=== PATIENT | female | born 1960 | race Caucasian/White ===

== ENCOUNTER 2023-06-30 09:33 | Outpatient (CLI) | payer BC | END 2023-06-30 09:34 | disposition home or self-care (01) | LOC: SCSRAD 09:33 | PROVIDERS: ATTEND Nurse Practitioner Family | DX: R07.9 Chest pain, unspecified (principal) | CPT/HCPCS: 71046 ==

== ENCOUNTER 2023-07-06 11:15 | Outpatient (CLI) | payer BC | END 2023-07-06 11:16 | disposition home or self-care (01) | LOC: SCSRAD 11:15 | PROVIDERS: ATTEND Family Medicine | DX: R07.89 Other chest pain (principal) | CPT/HCPCS: 81001 ==

== ENCOUNTER 2023-08-11 06:38 | Inpatient (IN) | payer BC ==
[2023-08-11 07:24] LABS: #Monocytes 0.9 thou/uL (0.11-0.59); #Neutrophils 8.4 thou/uL (1.40-6.50); %Basophils 0.2 % (0.0-1.0); %Eosinophils 0.1 % (0.0-10.0); %Lymphocytes 7.6 % (21.0-51.0); %Monocytes 8.4 % (0.0-10.0); %Neutrophils 82.7 % (42.0-75.0); Hematocrit 23.7 % (36.0-47.0); Hemoglobin 7.2 g/dL (12.0-16.0); Mean Corpuscular HGB CONC 30.4 g/dL (32.0-36.0); Mean Corpuscular Hemoglobin 19.6 pg (27.0-31.0); Mean Corpuscular Volume 64.4 fl (78.0-98.0); Mean Platelet Volume 8.2 fL (7.4-10.4); Platelet Count 268 10x3/uL (130-400); RBC Distribution Width 18.1 % (11.5-14.5); Red Blood Cell (RBC) Count 3.68 mill/uL (4.20-5.40); White Blood Cell (WBC) Count 10.1 10x3/uL (4.8-10.8)
[2023-08-11 07:49] LABS: CellaVision Operator ID LAB.GE; Hypochromia MODERATE=16-30 cells HPF (0-5); Microcytosis MODERATE=15-30 cells HPF (0-5); Platelet Adequacy Comment Platelets Normal; Polychromasia SLIGHT = 2-3 cells HPF (0-2)
[2023-08-11 07:54] LABS: ALT (SGPT) 21 U/L (8-55); AST (SGOT) 25 U/L (5-34); Albumin 3.6 g/dL (3.4-4.8); Alkaline Phosphatase 83 U/L (40-110); Anion Gap 14 mmol/L (10-20); BUN (Urea Nitrogen) 6 mg/dL (9.8-20.1); Bilirubin, Total 0.9 mg/dL (0.2-1.2); Calc. Creatinine Clearance 0 mL/min (70-130); Calcium 8.6 mg/dL (7.8-10.44); Carbon Dioxide 26 mmol/L (23-31); Chloride 74 mmol/L (98-107); Estimated GFR 99; Globulin 2.4 g/dL (2.4-3.5); Glucose 102 mg/dL (80-115)
[2023-08-11 08:02] LABS: Potassium 2.6 mmol/L (3.5-5.1); Sodium 111 mmol/L (136-145)
[2023-08-11] MEDS ORDERED: Ketorolac Tromethamine 30 MG/ML VIAL ONE (08:04)
[2023-08-11] MEDS ORDERED: Sodium Chloride 0.9% 0 ML ONE (08:05)
[2023-08-11] MEDS ORDERED: cefTRIAXone (ROCEPHIN) 1 GM VIAL ONE (08:05)
[2023-08-11 08:47] LABS: Magnesium 1.7 mg/dL (1.6-2.6)
[2023-08-11 09:05] LABS: Bilirubin Negative (Negative); Blood, Urine Negative (Negative); Glucose, Urine (Dipstick) Negative (Negative); Ketone, Urine 15 mg/dL (Negative); Leukocyte Negative (Negative); Nitrite Negative (Negative); Protein, Urine (Dipstick) Negative (Neg-Trace); Urobilinogen 0.2 mg/dL (Less than 2)
[2023-08-11] MEDS ORDERED: Potassium Chloride 20 MEQ TAB ONE (09:09)
[2023-08-11 09:13] LABS: Bacteria/HPF None Seen HPF (None Seen); CAUTI Indications for Culture Dysuria,urgency,freq; RBC/HPF 0-3 HPF (0-3); Squamous Epithelial 0-3 HPF (0-3); WBC/HPF 0-3 HPF (0-3)
[2023-08-11 09:14] LABS: Clarity Clear (Clear); Specific Gravity, Urine 1.028 (1.002-1.036)
[2023-08-11 09:17] LABS: Urine Culture Reflex No No
[2023-08-11] MEDS ORDERED: Acetaminophen 325 MG TAB PO PRN (09:36)
[2023-08-11] MEDS ORDERED: Bisacodyl 10 MG SUPP PR PRN (09:36)
[2023-08-11] MEDS ORDERED: Senokot S 8.6-50 MG TAB PO PRN (09:36)
[2023-08-11] MEDS ORDERED: Bisacodyl 5 MG TAB PO PRN (09:36)
[2023-08-11 10:47] LABS: Iron 23 ug/dL (50-170); Iron Binding Capacity, Total 424 mcg/dL (265-497)
[2023-08-11 10:49] LABS: Sodium 110 mmol/L (136-145)
[2023-08-11] MEDS ORDERED: Iopamidol 370 76% 100 ML VIAL ONE (10:59)
[2023-08-11 11:20] VITALS: BMI 33.7
[2023-08-11] MEDS ORDERED: Potassium Chloride 10 MEQ in Premix 1 BAG IVPB SCH (12:00)
[2023-08-11] MEDS ORDERED: Potassium Chloride 20 MEQ TAB PO SCH ×2 (12:00→16:00)
[2023-08-11 12:21] LABS: Creatinine, Urine Less than 20.00 mg/dL (47-110); Potassium, Urine 12.5 mmol/L
[2023-08-11 12:22] LABS: Sodium 111 mmol/L (136-145)
[2023-08-11] MEDS ORDERED: FLU VACC QS2023-24(6MOS UP)/PF 60 MCG/0.5 ML SYRINGE IM ONE (12:45)
[2023-08-11] MEDS ORDERED: Electrolyte Replacement Protocol 1 EACH FS SCH (13:03)
[2023-08-11] MEDS ORDERED: Magnesium 2 GM/50 ML(in water) 2 GM in Premix 1 BAG IVPB SCH (14:00)
[2023-08-11 14:19] LABS: Potassium 3.2 mmol/L (3.5-5.1)
[2023-08-11 14:23] LABS: Sodium 112 mmol/L (136-145)
[2023-08-11] MEDS ORDERED: Pramipexole Di-HCl 1 MG TAB PO SCH (14:30)
[2023-08-11 14:41] LABS: Ferritin 15.83 ng/mL (10-291); Free T4 (Free Thyroxine) 0.97 ng/dL (0.70-1.48)
[2023-08-11 16:33] LABS: Sodium 111 mmol/L (136-145)
[2023-08-11] MEDS: traMADol HCl 50 MG TAB PO PRN (16:46)
[2023-08-11 18:31] LABS: Sodium 110 mmol/L (136-145)
[2023-08-11] MEDS ORDERED: Sodium Chloride 1 GM TAB PO SCH (19:30)
[2023-08-11 19:34] LABS: Potassium 3.8 mmol/L (3.5-5.1)
[2023-08-11] MEDS: Famotidine 20 MG TAB PO SCH (19:46)
[2023-08-11] MEDS: Potassium Bicarbonate/Cit Ac 20 MEQ TAB PO SCH ×2 (19:47→21:50)
[2023-08-11] MEDS: Pramipexole Di-HCl 1 MG TAB PO SCH (19:47)
[2023-08-11 20:34] LABS: Hemoglobin 7.9 g/dL (12.0-16.0)
[2023-08-11 20:53] LABS: Anion Gap 16 mmol/L (10-20); BUN (Urea Nitrogen) 8 mg/dL (9.8-20.1); Calc. Creatinine Clearance 114 mL/min (70-130); Calcium 9.1 mg/dL (7.8-10.44); Carbon Dioxide 24 mmol/L (23-31); Chloride 77 mmol/L (98-107); Estimated GFR 95; Glucose 100 mg/dL (80-115); Potassium 4.8 mmol/L (3.5-5.1)
[2023-08-11 20:57] LABS: Sodium 112 mmol/L (136-145)
[2023-08-11 23:09] LABS: Potassium 5.2 mmol/L (3.5-5.1)
[2023-08-11 23:18] LABS: Sodium 111 mmol/L (136-145)
[2023-08-12] MEDS: traMADol HCl 50 MG TAB PO PRN ×4 (00:02→21:55)
[2023-08-12 00:48] LABS: Potassium 5.2 mmol/L (3.5-5.1)
[2023-08-12 01:01] LABS: Sodium 111 mmol/L (136-145)
[2023-08-12] MEDS ORDERED: Sodium Chloride 1 GM TAB PO SCH (01:30)
[2023-08-12 03:19] LABS: #Neutrophils 7.8 thou/uL (1.40-6.50); %Basophils 0.2 % (0.0-1.0); %Eosinophils 0.2 % (0.0-10.0); %Lymphocytes 9.2 % (21.0-51.0); %Monocytes 9.7 % (0.0-10.0); %Neutrophils 79.9 % (42.0-75.0); Hemoglobin 7.5 g/dL (12.0-16.0); Mean Corpuscular Hemoglobin 19.7 pg (27.0-31.0); Mean Corpuscular Volume 65.6 fl (78.0-98.0); Mean Platelet Volume 8.8 fL (7.4-10.4); Platelet Count 303 10x3/uL (130-400); RBC Distribution Width 18.6 % (11.5-14.5); Red Blood Cell (RBC) Count 3.81 mill/uL (4.20-5.40); White Blood Cell (WBC) Count 9.8 10x3/uL (4.8-10.8)
[2023-08-12 03:51] LABS: Anion Gap 14 mmol/L (10-20); BUN (Urea Nitrogen) 7 mg/dL (9.8-20.1); Calc. Creatinine Clearance 124 mL/min (70-130); Calcium 8.8 mg/dL (7.8-10.44); Carbon Dioxide 25 mmol/L (23-31); Chloride 81 mmol/L (98-107); Estimated GFR 99; Glucose 88 mg/dL (80-115); Potassium 4.6 mmol/L (3.5-5.1)
[2023-08-12 04:01] LABS: Sodium 115 mmol/L (136-145)
[2023-08-12] MEDS: Ferrous Gluconate 324 MG TAB PO SCH (09:22)
[2023-08-12] MEDS: Pramipexole Di-HCl 1 MG TAB PO SCH (09:22)
[2023-08-12] MEDS: Famotidine 20 MG TAB PO SCH ×2 (09:22→21:49)
[2023-08-12] MEDS: FLUoxetine HCl 20 MG CAP PO SCH (09:23)
[2023-08-12] MEDS ORDERED: Iopamidol-370 76% 500 ML MDV (1 ML CHARGE) ONE (11:21)
[2023-08-12 12:44] LABS: Hematocrit 27.6 % (36.0-47.0); Hemoglobin 8.3 g/dL (12.0-16.0)
[2023-08-12 13:11] LABS: Anion Gap 13 mmol/L (10-20); BUN (Urea Nitrogen) 8 mg/dL (9.8-20.1); Calc. Creatinine Clearance 119 mL/min (70-130); Calcium 9.3 mg/dL (7.8-10.44); Carbon Dioxide 24 mmol/L (23-31); Chloride 84 mmol/L (98-107); Estimated GFR 98; Glucose 88 mg/dL (80-115); Potassium 4.2 mmol/L (3.5-5.1)
[2023-08-12 13:30] LABS: Sodium 117 mmol/L (136-145)
[2023-08-12] MEDS: Sodium Chloride 1 GM TAB PO SCH ×3 (13:39→21:50)
[2023-08-12 17:09] LABS: Anion Gap 12 mmol/L (10-20); BUN (Urea Nitrogen) 8 mg/dL (9.8-20.1); Calc. Creatinine Clearance 114 mL/min (70-130); Calcium 9.1 mg/dL (7.8-10.44); Carbon Dioxide 25 mmol/L (23-31); Chloride 86 mmol/L (98-107); Estimated GFR 95; Glucose 85 mg/dL (80-115); Magnesium 2.5 mg/dL (1.6-2.6); Potassium 4.3 mmol/L (3.5-5.1)
[2023-08-12 17:13] LABS: Sodium 119 mmol/L (136-145)
[2023-08-12] MEDS ORDERED: Pramipexole Di-HCl 1 MG TAB PO SCH (18:00)
[2023-08-12 19:54] LABS: Sodium 121 mmol/L (136-145)
[2023-08-13 07:20] LABS: #Monocytes 0.8 thou/uL (0.11-0.59); #Neutrophils 3.6 thou/uL (1.40-6.50); %Basophils 0.4 % (0.0-1.0); %Eosinophils 0.6 % (0.0-10.0); %Lymphocytes 15.4 % (21.0-51.0); %Monocytes 14.6 % (0.0-10.0); %Neutrophils 67.9 % (42.0-75.0); Mean Corpuscular HGB CONC 29.2 g/dL (32.0-36.0); Mean Corpuscular Volume 68.6 fl (78.0-98.0); Mean Platelet Volume 8.7 fL (7.4-10.4); Platelet Count 282 10x3/uL (130-400); RBC Distribution Width 19.5 % (11.5-14.5); White Blood Cell (WBC) Count 5.3 10x3/uL (4.8-10.8)
[2023-08-13 07:43] LABS: Anion Gap 10 mmol/L (10-20); BUN (Urea Nitrogen) 8 mg/dL (9.8-20.1); Calc. Creatinine Clearance 121 mL/min (70-130); Calcium 8.7 mg/dL (7.8-10.44); Carbon Dioxide 27 mmol/L (23-31); Chloride 93 mmol/L (98-107); Estimated GFR 99; Glucose 82 mg/dL (80-115); Magnesium 2.5 mg/dL (1.6-2.6); Potassium 4.1 mmol/L (3.5-5.1); Sodium 126 mmol/L (136-145)
[2023-08-13 07:53] LABS: Anisocytosis SLIGHT = 6-15 cells HPF (0-5); CellaVision Operator ID lab.dlt; Hypochromia SLIGHT = 6-15 cells HPF (0-5); Microcytosis SLIGHT = 6-15 cells HPF (0-5); Ovalocytes SLIGHT = 2-5 cells HPF (0-1); Platelet Adequacy Comment Platelets Normal; Poikilocytosis SLIGHT = 6-15 cells HPF (0-5); Polychromasia SLIGHT = 2-3 cells HPF (0-2)
[2023-08-13] MEDS: Ferrous Gluconate 324 MG TAB PO SCH (09:19)
[2023-08-13] MEDS: Pramipexole Di-HCl 1 MG TAB PO SCH ×3 (09:19→22:24)
[2023-08-13] MEDS: Famotidine 20 MG TAB PO SCH ×2 (09:19→22:24)
[2023-08-13] MEDS: FLUoxetine HCl 20 MG CAP PO SCH (09:19)
[2023-08-13 20:30] LABS: Sodium 127 mmol/L (136-145)
[2023-08-13] MEDS ORDERED: traZODone HCl 50 MG TAB PO SCH (21:00)
[2023-08-14 06:52] LABS: #Eosinphils 0.1 thou/uL (0.0-0.7); #Monocytes 0.7 thou/uL (0.11-0.59); #Neutrophils 3.9 thou/uL (1.40-6.50); %Basophils 0.5 % (0.0-1.0); %Eosinophils 1.9 % (0.0-10.0); %Lymphocytes 18.1 % (21.0-51.0); %Monocytes 12.1 % (0.0-10.0); %Neutrophils 66.9 % (42.0-75.0); Hematocrit 24.4 % (36.0-47.0); Mean Corpuscular HGB CONC 28.7 g/dL (32.0-36.0); Mean Corpuscular Volume 69.7 fl (78.0-98.0); Mean Platelet Volume 8.8 fL (7.4-10.4); Platelet Count 289 10x3/uL (130-400); RBC Distribution Width 19.9 % (11.5-14.5); White Blood Cell (WBC) Count 5.9 10x3/uL (4.8-10.8)
[2023-08-14 07:14] LABS: Anion Gap 13 mmol/L (10-20); BUN (Urea Nitrogen) 10 mg/dL (9.8-20.1); Calc. Creatinine Clearance 119 mL/min (70-130); Calcium 8.8 mg/dL (7.8-10.44); Carbon Dioxide 24 mmol/L (23-31); Chloride 96 mmol/L (98-107); Estimated GFR 98; Glucose 81 mg/dL (80-115); Potassium 3.7 mmol/L (3.5-5.1); Sodium 129 mmol/L (136-145)
[2023-08-14] MEDS ORDERED: hydrALAZINE 25 MG TAB PO SCH (08:00)
[2023-08-14] MEDS ORDERED: Amlodipine 10 MG TAB PO SCH (09:00)
[2023-08-14] MEDS: hydrALAZINE 25 MG TAB PO SCH ×2 (09:02→14:44)
[2023-08-14] MEDS: Ferrous Gluconate 324 MG TAB PO SCH (09:03)
[2023-08-14] MEDS: FLUoxetine HCl 20 MG CAP PO SCH (09:03)
[2023-08-14] MEDS: Pramipexole Di-HCl 1 MG TAB PO SCH ×2 (09:03→14:44)
[2023-08-14] MEDS ORDERED: LevoFLOXacin 500 MG TAB PO SCH (10:14)
[2023-08-14] MEDS: traMADol HCl 50 MG TAB PO PRN (16:36)
[2023-08-14 18:25] VITALS: BP 129/80; TEMP 97.9
== END 2023-08-14 18:26 | disposition home or self-care (01) | DRG 644 ==
LOC: ERS 06:38 → CCU 09:00 → T4-A 08-12 19:34
PROVIDERS: ADMIT Hospitalist; ATTEND Internal Medicine
DX: E22.2 Syndrome of inappropriate secretion of antidiuretic hormone (principal); C64.1 Malignant neoplasm of right kidney, except renal pelvis; R33.9 Retention of urine, unspecified; E87.6 Hypokalemia; N28.89 Other specified disorders of kidney and ureter; R91.1 Solitary pulmonary nodule; I12.9 Hypertensive chronic kidney disease with stage 1 through stage 4 chronic kidney disease, or unspecified chronic kidney disease; N18.1 Chronic kidney disease, stage 1; D63.1 Anemia in chronic kidney disease; D50.9 Iron deficiency anemia, unspecified; K44.9 Diaphragmatic hernia without obstruction or gangrene; F39 Unspecified mood [affective] disorder; F32.A Depression, unspecified; Z90.49 Acquired absence of other specified parts of digestive tract; Z98.890 Other specified postprocedural states; Z90.712 Acquired absence of cervix with remaining uterus; Z80.9 Family history of malignant neoplasm, unspecified; Z82.49 Family history of ischemic heart disease and other diseases of the circulatory system; Z87.891 Personal history of nicotine dependence
CPT/HCPCS: 36415; 36416; 36430; 51798; 70470; 71260; 74178; 80048; 80053; 81001; 82570; 82728; 83540; 83550; 83605; 83735; 83930; 83935; 84133; 84300; 84439; 84443; 85025; 86850; 86900; 86901; 87086; 93005; J0696; J1650; J1885; J3475; J3480; J3490; P9016; Q9967